=== PATIENT | female | born 1995 | race American Indian/Alaskan Native ===

== ENCOUNTER 2020-12-14 17:21 | Emergency (ER) | payer SELFPAY ==
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
[2020-12-14 19:22] VITALS: BP 128/81
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
[2020-12-14] MEDS ORDERED: oxyCODONE /ACETAMINOPHEN 5-325MG TAB PO ONE (22:33)
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
== END 2020-12-14 23:30 | disposition home or self-care (01) ==
LOC: ED 17:21
DX: M79.604 Pain in right leg (principal); M79.605 Pain in left leg; M54.9 Dorsalgia, unspecified; M25.562 Pain in left knee; V89.2XXA Person injured in unspecified motor-vehicle accident, traffic, initial encounter; Y93.89 Activity, other specified; Y92.488 Other paved roadways as the place of occurrence of the external cause; Y99.8 Other external cause status
CPT/HCPCS: 99283

== ENCOUNTER 2021-08-16 16:02 | Emergency (ER) | payer SELFPAY ==
[2021-08-16 16:19] VITALS: BP 115/69
== END 2021-08-16 19:20 | disposition left against medical advice (07) ==
LOC: ED 16:02
DX: R42 Dizziness and giddiness (principal); Z53.21 Procedure and treatment not carried out due to patient leaving prior to being seen by health care provider